=== PATIENT | male | born 1975 | race Two or more races ===

== ENCOUNTER 2020-07-27 23:43 | Inpatient (IN) | payer MEDICAID ==
[~2020-07-27] VITALS: Ht 154.9 cm; Wt 83.9 kg
[2020-07-27 23:57] VITALS: BP 143/90
[2020-07-28] VITALS (7 sets, daily range): BP systolic 127–139; BP diastolic 80–90
--- NOTE | 2020-07-28 00:08 | Emergency Room Report ---
History of Present Illness General Chief Complaint: Dyspnea/Respdistress Source: Patient Present Illness HPI Is a 44-year-old male with no past medical history. He presents with chief complaint of fever cough and shortness of breath. Onset for last 4 days. He does have sick contact in his family. His family however only have mild symptoms. Coughing is nonproductive nature. Worse with exertion. Worse with lying flat. Symptoms worsened today so the so he came in. His room air oxygenation was 80% in triage. He has no other medical problem. No chest pain. No nausea vomiting or diarrhea. No Covid testing done prior to arrival. Allergies: Coded Allergies: No Known Allergies (Unverified , 07/27/20) COVID-19 Screening Contact w/high risk pt: No Experienced COVID-19 symptoms?: Yes COVID-19 Testing performed CARGO AGENT: No Patient History Past Medical History: none, see triage record, old chart reviewed Past Surgical History: none Pertinent Family History: none Social History: Denies: smoking Immunizations: other Reviewed Nursing Documentation: PMH: Agreed; PSxH: Agreed Nursing Documentation-PMH Past Medical History: No Stated History Review of Systems Constitutional: Reports: chills, fever Eye: Denies: eye pain, blurred vision ENT: Denies: ear pain, nose congestion, throat swelling Respiratory: Reports: cough, shortness of breath, ZUNIGA Cardiovascular: Denies: chest pain, palpitations Gastrointestinal: Denies: abdominal pain, diarrhea, nausea, vomiting Musculoskeletal: Denies: back pain, joint pain Skin: Denies: rash Neurological: Denies: headache, numbness Endocrine: Denies: increased thirst, increased urine Hematologic/Lymphatic: Denies: easy bruising All Other Systems: negative except mentioned in HPI Physical Exam Vital Signs Date Time Temp Pulse Resp B/P (MAP) Pulse Ox O2 Delivery O2 Flow Rate FiO2 07/27/20 23:47 100.2 120 22 143/90 (107) 80 Room Air Vitals with hypoxia, fever and tachycardia Sp02 EP Interpretation: reviewed, normal General Appearance: well appearing, alert, mild distress - Ill appearing Head: normocephalic, atraumatic Eyes: bilateral eye PERRL, bilateral eye EOMI ENT: hearing grossly normal, normal pharynx Neck: full range of motion, supple, no meningismus Respiratory: chest non-tender, respiratory distress, decreased breath sounds, rhonchi Cardiovascular #1: regular rate, rhythm, no murmur, tachycardia Gastrointestinal: normal bowel sounds, non tender, no mass, no organomegaly, no bruit, non-distended Musculoskeletal: back normal, normal range of motion, gait/station normal Psychiatric: mood/affect normal Procedures Critical Care Time Critical Care Time Critical care is mandated in this patient who presented with acute respiratory failure from Covid pneumonia. Patient require my urgent intervention to attenuate the risks of respiratory collapse which may lead to cardiovascular collapse and . Critical care time is 35 minutes excluding any reportable procedure. Critical care time included evaluation, multiple reevaluation, looking at old charts, interpreting laboratory and diagnostic data, discussing case with patient and family and consultants, and charting. Medical Decision Making Diagnostic Impression: Primary Impression: Pneumonia due to COVID-19 virus Additional Impression: Acute respiratory failure with hypoxia ER Course Patient presents with hypoxemia secondary to Covid pneumonia. Oxygenation is much better on oxygen. Antibiotics given. Steroid given here. Will admit for further work-up. I discussed the case with Dr. Wood. EKG Diagnostic Results Troponin ordered: Yes Rate: tachycardiac Rhythm: NSR ST Segments: no acute changes Rhythm Strip Diag. Results EP Interpretation: yes Rate: 98 Rhythm: NSR, no PVC's, no ectopy Chest X-Ray Diagnostic Results Chest X-Ray Diagnostic Results : Chest X-Ray Ordered: Yes # of Views/Limited/Complete: 1 View Indication: Shortness of Breath EP Interpretation: Yes Interpretation: no effusion, no pneumothorax, other - b/l infiltrates Impression: Other - b/l infiltrate Electronically Signed by: Orlando Issa MD Last Vital Signs Date Time Temp Pulse Resp B/P (MAP) Pulse Ox O2 Delivery O2 Flow Rate FiO2 07/27/20 23:47 100.2 120 22 143/90 (107) 80 Room Air Status: improved Disposition: ADMITTED INPATIENT Condition: Serious Referrals: NOT CHOSEN IPA/,REFERRING (PCP) Orlando Issa MD Jul 28, 2020 00:07
[2020-07-28] MEDS ORDERED: Enoxaparin 100mg Inj SUBQ ONE (00:15)
[2020-07-28] MEDS ORDERED: dexAMETHasone 10mg/ml Inj IV ONE (00:15)
[2020-07-28] MEDS ORDERED: Azithromycin 500 MG in NS 275 ML IVPB ONE (00:15)
[2020-07-28] MEDS ORDERED: Acetaminophen 500mg (ES) tab ORAL ONE (00:15)
[2020-07-28] MEDS ORDERED: Albuterol 90mcg Inhaler 8gm INH ONE (00:15)
[2020-07-28] MEDS ORDERED: cefTRIAXone 1 GM in NS 55 ML IV ONE (00:15)
[2020-07-28 00:29] LABS: BASOPHILS % (AUTO) 0.4 % (0.0-2.0); EOSINOPHILS % (AUTO) 0.5 % (0.0-3.0); HEMATOCRIT 44.1 % (42.0-52.0); HEMOGLOBIN 16.5 G/DL (14.2-18.0); LYMPHOCYTES % (AUTO) 22.7 % (20.0-45.0); MEAN CORPUSCULAR VOLUME 82 FL (80-99); MONOCYTES % (AUTO) 6.7 % (1.0-10.0); NEUTROPHILS % (AUTO) 69.6 % (45.0-75.0); PLATELET COUNT 254 K/UL (150-450); RED BLOOD COUNT 5.35 M/UL (4.70-6.10); RED CELL DISTRIBUTION WIDTH 12.9 % (11.6-14.8); WHITE BLOOD COUNT 11.3 K/UL (4.8-10.8)
[2020-07-28] MEDS ORDERED: Albuterol ud Inhalation HHN PRN (00:45)
--- NOTE | 2020-07-28 00:47 | Diagnostic Imaging Report ---
EXAM: XR Chest, 1 View CLINICAL HISTORY: SOB TECHNIQUE: Frontal view of the chest. COMPARISON: No relevant prior studies available. FINDINGS: Lungs: Low lung volumes with multifocal opacities throughout both lungs. Pleural space: Unremarkable. No pneumothorax. Heart: Unremarkable. No cardiomegaly. Mediastinum: Unremarkable. Bones/joints: Unremarkable. IMPRESSION: Hypoventilatory exam with multifocal opacities throughout both lungs which may represent an acute infectious/inflammatory process such as multifocal pneumonia. Diffuse alveolar pulmonary edema could also have this appearance.
[2020-07-28 01:05] LABS: ALANINE AMINOTRANSFERASE 83 U/L (12-78); ALBUMIN 3.1 G/DL (3.4-5.0); ALBUMIN/GLOBULIN RATIO 0.6 (1.0-2.7); ALKALINE PHOSPHATASE 166 U/L (46-116); ANION GAP 8 mmol/L (5-15); ASPARTATE AMINO TRANSFERASE 63 U/L (15-37); BILIRUBIN,TOTAL 0.5 MG/DL (0.2-1.0); BLOOD UREA NITROGEN 10 mg/dL (7-18); CALCIUM 8.7 MG/DL (8.5-10.1); CARBON DIOXIDE 28 MMOL/L (21-32); CHLORIDE 100 MMOL/L (98-107); CKMB < 0.5 NG/ML (0.0-3.6); CREATINE KINASE 102 U/L (26-308); CREATININE 0.9 MG/DL (0.55-1.30); FERRITIN 1966 NG/ML (8-388); LACTATE DEHYDROGENASE 430 U/L (81-234); POTASSIUM 3.9 MMOL/L (3.5-5.1); SODIUM 136 MMOL/L (136-145)
[2020-07-28 01:06] LABS: APPEARANCE,URINE CLEAR; BILIRUBIN, URINE NEGATIVE (NEGATIVE); COLOR,URINE PALE YELLOW; GLUCOSE, URINE (UA) 4+ (NEGATIVE); KETONES,URINE NEGATIVE (NEGATIVE); LEUKOCYTE ESTERASE ,URINE NEGATIVE (NEGATIVE); NITRITE,URINE NEGATIVE (NEGATIVE); PH,URINE 7 (4.5-8.0); PROTEIN,URINE 2+ (NEGATIVE); UROBILINOGEN,URINE NORMAL MG/DL (0.0-1.0)
[2020-07-28] MEDS ORDERED: Albuterol 90mcg Inhaler 8gm INH PRN (07:30)
[2020-07-28] MEDS ORDERED: Acetaminophen 650mg/20.3ml ORAL PRN (07:30)
[2020-07-28] MEDS ORDERED: Enoxaparin 40mg Inj SUBQ SCH (09:00)
--- NOTE | 2020-07-28 13:15 | History and Physical Report ---
DATE OF ADMISSION: 07/28/2020 CHIEF COMPLAINT: COVID-19 pneumonia. HISTORY OF PRESENT ILLNESS: The patient is a 44-year-old male, no past medical history, who presents with complaints of four days of cough, congestion, fevers, chills, and shortness of breath. On evaluation in the emergency room, he had a low-grade fever, was hypoxic. He was initially placed on a non-rebreather but later weaned down to nasal cannula. He had evidence of pneumonia on x-ray and his COVID test came back positive. He is now admitted for further evaluation and care. PAST MEDICAL HISTORY: None. PAST SURGICAL HISTORY: None. CURRENT MEDICATIONS: None. FAMILY HISTORY: None. SOCIAL HISTORY: Negative for tobacco, ethanol, or drugs. REVIEW OF SYSTEMS: Negative except for fevers, cough, and congestion. PHYSICAL EXAMINATION: VITAL SIGNS: Temperature 99.8, pulse 91, respirations 22, blood pressure 135/82. GENERAL: The patient is saturating 96% on 2 liters. The patient is a well-developed male, in no apparent distress. HEART: Regular. LUNGS: Clear. ABDOMEN: Soft. EXTREMITIES: Without clubbing, cyanosis, or edema. LABORATORY DATA: Labs were reviewed. ASSESSMENT: This is a 44-year-old male admitted with complaints of COVID-19 pneumonia, hypoxemia. PLAN: IV Decadron. Consider remdesivir. ID consultation. Supplemental oxygen. DVT prophylaxis. Akin Wood M.D. DR: FEI JOB#: [id number] CC:
[2020-07-29] VITALS (7 sets, daily range): BP systolic 116–130; BP diastolic 75–83
--- NOTE | 2020-07-29 09:27 | General Progress Note ---
Subjective ROS Limited/Unobtainable: No Constitutional: Reports: no symptoms HEENT: Reports: no symptoms Cardiovascular: Reports: no symptoms Respiratory: Reports: cough, shortness of breath Gastrointestinal/Abdominal: Reports: no symptoms Genitourinary: Reports: no symptoms Neurologic/Psychiatric: Reports: no symptoms Endocrine: Reports: no symptoms Hematologic/Lymphatic: Reports: no symptoms Allergies: Coded Allergies: No Known Allergies (Unverified , 07/27/20) All Systems: reviewed and negative except above Subjective no events. worsening sob. now on venti mask. Objective Last 24 Hour Vital Signs Date Time Temp Pulse Resp B/P (MAP) Pulse Ox O2 Delivery O2 Flow Rate FiO2 07/29/20 04:00 96.9 88 20 120/77 (91) 91 07/29/20 00:00 97.9 98 20 130/83 (99) 94 07/28/20 20:41 Venturi Mask 14.0 07/28/20 20:00 97.6 96 20 128/80 (96) 94 07/28/20 16:00 97.7 105 21 128/86 (100) 95 07/28/20 12:00 98.2 114 21 137/90 (106) 91 07/28/20 12:00 94 Venturi Mask 14.0 55 07/28/20 10:29 Nasal Cannula 2.0 07/28/20 10:00 98.2 105 18 127/83 (98) 94 Intake and Output 07/28/20 07/29/20 19:00 07:00 Intake Total 500 ml 500 ml Balance 500 ml 500 ml Intake Oral 500 ml Other 500 ml # Voids 2 Laboratory Tests 07/29/20 08:46: Arterial Blood pH 7.410, Arterial Blood Partial Pressure CO2 43.9, Arterial Blood Partial Pressure O2 96.4, Arterial Blood HCO3 27.2H, Arterial Blood Oxygen Saturation 97.1, Arterial Blood Base Excess 2.1H, Jesse Test Positive Height (Feet): 5 Height (Inches): 1.00 Weight (Pounds): 185 Objective deferred due to covid + status Assessment/Plan Problem List: (1) Acute respiratory failure with hypoxia ICD Codes: J96.01 - Acute respiratory failure with hypoxia; J12.89 - Other viral pneumonia SNOMED: 79118672, 986013180 (2) Pneumonia due to COVID-19 virus ICD Codes: U07.1 - COVID-19; J12.89 - Other viral pneumonia SNOMED: 991075129279714533 Status: deteriorating Assessment/Plan: steroids titrate o2 dvt and stress ulcer prophylaxis guarded Akin Wood MD Jul 29, 2020 09:27
[2020-07-29] MEDS: Vitamin D 1000 units Tab ORAL SCH (10:52)
[2020-07-29] MEDS: Zinc Sulfate 220mg ORAL SCH (10:52)
[2020-07-29] MEDS: Ascorbic Acid 500mg tab ORAL SCH ×2 (10:52→17:37)
[2020-07-29] MEDS ORDERED: Loading Dose:Remdesivir 200mg/NS 210ml IV SCH ×2 (11:00)
--- NOTE | 2020-07-29 19:29 | Consultation ---
DATE OF CONSULTATION: 07/29/2020 INFECTIOUS DISEASES CONSULTATION CONSULTING PHYSICIAN: Terrance Helm M.D. PRIMARY ATTENDING PHYSICIAN: Akin Wood M.D. REASON FOR CONSULT: COVID-19 disease. HISTORY OF PRESENT ILLNESS: The patient is a 44-year-old male, admitted yesterday from home complaining of fever, cough, shortness of breath. The patient's symptoms started 5 days ago, had a fever of 100.2 in the ER, had pulse of 120, O2 saturation was low 80% on room air. PAST MEDICAL HISTORY: Insignificant. ALLERGIES: No known drug allergies. MEDICATIONS: Getting Remdesivir, vitamin D, zinc, vitamin C, Protonix, dexamethasone, albuterol, and Tylenol. SOCIAL HISTORY: Denies alcohol, drug abuse, or smoking. He is , has 2 children. At first, the children became sick. REVIEW OF SYSTEMS: Fever since yesterday, shortness of breath, occasional nonproductive cough. No change in his smell. No diarrhea. No problem passing urine. PHYSICAL EXAMINATION: VITAL SIGNS: Temperature 97.9, pulse 89, blood pressure 122/83. GENERAL APPEARANCE: He is overweight, obese. HEAD AND NECK: Getting oxygen by high-flow rebreathing mask. HEART: Normal rate. LUNGS: Clear. Oxygen fluid is 15 liters/minute. ABDOMEN: Soft. EXTREMITIES: No edema. NEUROLOGIC: Awake, alert, oriented x3. LABORATORY AND DIAGNOSTIC DATA: Sodium 136, potassium 3.9, chloride 100, BUN 10, creatinine 0.9, glucose was 209. AST 62, ALT 83, alkaline phosphatase is 166. LDH 430. Albumin is 3.1. Chest x-ray showed no multifocal pneumonia. COVID test was positive. Blood cultures are negative. IMPRESSION: COVID-19 disease. The patient has hypoxemia, has hyperglycemia, may have underlying diabetes mellitus, elevated transaminase, obesity. RECOMMENDATION: Continue dexamethasone and Remdesivir. Check hemoglobin A1c. At the end of my exam, I thank, Dr. Wood, for involving me in the care of this patient. Terrance Helm M.D. DR: DILAN JOB#: [id number] CC:
[2020-07-30 04:00] VITALS: BP 113/74
[2020-07-30 07:57] LABS: BASOPHILS % (AUTO) 0.4 % (0.0-2.0); EOSINOPHILS % (AUTO) 0.3 % (0.0-3.0); HEMATOCRIT 45.2 % (42.0-52.0); HEMOGLOBIN 15.2 G/DL (14.2-18.0); LYMPHOCYTES % (AUTO) 15.9 % (20.0-45.0); MEAN CORPUSCULAR VOLUME 87 FL (80-99); NEUTROPHILS % (AUTO) 77.5 % (45.0-75.0); PLATELET COUNT 317 K/UL (150-450); RED BLOOD COUNT 5.18 M/UL (4.70-6.10); RED CELL DISTRIBUTION WIDTH 12.1 % (11.6-14.8); WHITE BLOOD COUNT 14.3 K/UL (4.8-10.8)
[2020-07-30 07:58] LABS: ALANINE AMINOTRANSFERASE 66 U/L (12-78); ALKALINE PHOSPHATASE 134 U/L (46-116); ANION GAP 8 mmol/L (5-15); ASPARTATE AMINO TRANSFERASE 46 U/L (15-37); BILIRUBIN,TOTAL 0.4 MG/DL (0.2-1.0); BLOOD UREA NITROGEN 21 mg/dL (7-18); CARBON DIOXIDE 29 MMOL/L (21-32); CHLORIDE 102 MMOL/L (98-107); CREATININE 0.8 MG/DL (0.55-1.30); POTASSIUM 4.1 MMOL/L (3.5-5.1); SODIUM 139 MMOL/L (136-145)
[2020-07-30 08:00] VITALS: BP 104/72
[2020-07-30 08:07] LABS: ALBUMIN 2.9 G/DL (3.4-5.0)
[2020-07-30 08:08] LABS: ALBUMIN/GLOBULIN RATIO 0.6 (1.0-2.7)
--- NOTE | 2020-07-30 08:19 | General Progress Note ---
Subjective ROS Limited/Unobtainable: No Constitutional: Reports: malaise, weakness HEENT: Reports: no symptoms Cardiovascular: Reports: no symptoms Respiratory: Reports: cough, shortness of breath Gastrointestinal/Abdominal: Reports: no symptoms Genitourinary: Reports: no symptoms Neurologic/Psychiatric: Reports: no symptoms Endocrine: Reports: no symptoms Hematologic/Lymphatic: Reports: no symptoms Allergies: Coded Allergies: No Known Allergies (Unverified , 07/27/20) All Systems: reviewed and negative except above Subjective no events. stable on venti mask Objective Last 24 Hour Vital Signs Date Time Temp Pulse Resp B/P (MAP) Pulse Ox O2 Delivery O2 Flow Rate FiO2 07/30/20 04:00 97.9 87 20 113/74 (87) 94 07/29/20 23:56 97.8 88 20 120/77 (91) 94 07/29/20 21:56 96 Venturi Mask 14.0 55 07/29/20 21:00 Non-Rebreather 15.0 07/29/20 20:00 97.0 85 20 116/75 (89) 91 07/29/20 16:00 97.7 89 20 125/79 (94) 99 07/29/20 11:29 97.7 89 20 122/83 (96) 98 07/29/20 09:00 Non-Rebreather 15.0 Intake and Output 07/29/20 07/30/20 19:00 07:00 Intake Total 1050 ml 400 ml Output Total 1000 ml 800 ml Balance 50 ml -400 ml Intake Oral 800 ml 400 ml IV Total 250 ml Output Urine Total 1000 ml 800 ml # Voids 4 3 Laboratory Tests 07/29/20 08:46: Arterial Blood pH 7.410, Arterial Blood Partial Pressure CO2 43.9, Arterial Blood Partial Pressure O2 96.4, Arterial Blood HCO3 27.2H, Arterial Blood Oxygen Saturation 97.1, Arterial Blood Base Excess 2.1H, Jesse Test Positive 07/30/20 05:00: D-Dimer 0.70H, Sodium Level 139, Potassium Level 4.1, Chloride Level 102, Carbon Dioxide Level 29, Anion Gap 8, Blood Urea Nitrogen 21H, Creatinine 0.8, Estimat Glomerular Filtration Rate > 60, Glucose Level 147H, Calcium Level 9.0, Total Bilirubin 0.4, Direct Bilirubin [Pending], Aspartate Amino Transf (AST/SGOT) 46H , Alanine Aminotransferase (ALT/SGPT) 66, Alkaline Phosphatase 134H, Total Protein 7.9, Albumin 2.9L, Globulin 5.0, Albumin/Globulin Ratio 0.6L 07/30/20 06:00: White Blood Count 14.3H, Red Blood Count 5.18, Hemoglobin 15.2, Hematocrit 45.2, Mean Corpuscular Volume 87, Mean Corpuscular Hemoglobin 29.3, Mean Corpuscular Hemoglobin Concent 33.6, Red Cell Distribution Width 12.1, Platelet Count 317, Mean Platelet Volume 9.0, Neutrophils (%) (Auto) 77.5H, Lymphocytes (%) (Auto) 15.9L, Monocytes (%) (Auto) 6.0, Eosinophils (%) (Auto) 0.3, Basophils (%) (Auto) 0.4 Height (Feet): 5 Height (Inches): 1.00 Weight (Pounds): 185 General Appearance: WD/WN, no apparent distress Cardiovascular: regular rhythm Respiratory/Chest: normal breath sounds, no accessory muscle use Objective deferred due to covid + status Assessment/Plan Problem List: (1) Acute respiratory failure with hypoxia ICD Codes: J96.01 - Acute respiratory failure with hypoxia; J12.89 - Other viral pneumonia SNOMED: 42134409, 374480086 (2) Pneumonia due to COVID-19 virus ICD Codes: U07.1 - COVID-19; J12.89 - Other viral pneumonia SNOMED: 695526945886363459 Status: stable, deteriorating Assessment/Plan: steroids remdesivir titrate o2 dvt and stress ulcer prophylaxis guarded Akin Wood MD Jul 30, 2020 08:19
[2020-07-30] MEDS: Vitamin D 1000 units Tab ORAL SCH (09:09)
[2020-07-30] MEDS: Ascorbic Acid 500mg tab ORAL SCH ×2 (09:09→17:23)
[2020-07-30] MEDS: Zinc Sulfate 220mg ORAL SCH (09:09)
[2020-07-30] MEDS: Maintenance Dose:Remdesivir 100mg/NS 230ml x 4 Doses IV SCH ×2 (11:18)
[2020-07-30 12:00] VITALS: BP 116/76
--- NOTE | 2020-07-30 12:12 | Infectious Diseases Prog Note ---
Assessment/Plan Assessment/Plan antibiotics : remdesivir 07.29.20 - A 1. COVID 19 pneumonia on 15 liters O2 with saturation 98 % 2. diabetes mellitus P 1. continue remdesivir day 2 2. continue dexamethasone day 3 3. continue isolation Subjective ROS Limited/Unobtainable: Yes Constitutional: Denies: fever, chills Respiratory: Reports: shortness of breath - less, dry cough - less Gastrointestinal/Abdominal: Denies: nausea, vomiting, diarrhea Musculoskeletal: Reports: pain Allergies: Coded Allergies: No Known Allergies (Unverified , 07/27/20) Objective Last 24 Hour Vital Signs Date Time Temp Pulse Resp B/P (MAP) Pulse Ox O2 Delivery O2 Flow Rate FiO2 07/30/20 10:30 98 Non-Rebreather 15.0 100 07/30/20 09:00 Non-Rebreather 15.0 07/30/20 08:00 98.2 91 20 104/72 (83) 97 07/30/20 04:00 97.9 87 20 113/74 (87) 94 07/29/20 23:56 97.8 88 20 120/77 (91) 94 07/29/20 21:56 96 Venturi Mask 14.0 55 07/29/20 21:00 Non-Rebreather 15.0 07/29/20 20:00 97.0 85 20 116/75 (89) 91 07/29/20 16:00 97.7 89 20 125/79 (94) 99 Height (Feet): 5 Height (Inches): 1.00 Weight (Pounds): 185 Microbiology Date/Time Source Procedure Growth Status 07/28/20 00:07 Blood Blood Culture - Preliminary NO GROWTH AFTER 48 HOURS Resulted 07/27/20 23:57 Nasopharynx SARS-CoV-2 RdRp Gene Assay - Final Complete 07/27/20 23:57 Blood Blood Culture - Preliminary NO GROWTH AFTER 48 HOURS Resulted Laboratory Tests Test 07/30/20 05:00 07/30/20 06:00 D-Dimer 0.70 mg/L FEU (0.00-0.49) H Sodium Level 139 MMOL/L (136-145) Potassium Level 4.1 MMOL/L (3.5-5.1) Chloride Level 102 MMOL/L (98-107) Carbon Dioxide Level 29 MMOL/L (21-32) Anion Gap 8 mmol/L (5-15) Blood Urea Nitrogen 21 mg/dL (7-18) H Creatinine 0.8 MG/DL (0.55-1.30) Estimat Glomerular Filtration Rate > 60 mL/min (>60) Glucose Level 147 MG/DL (74-106) H Calcium Level 9.0 MG/DL (8.5-10.1) Total Bilirubin 0.4 MG/DL (0.2-1.0) Direct Bilirubin < 0.1 MG/DL (0.0-0.3) Aspartate Amino Transf (AST/SGOT) 46 U/L (15-37) H Alanine Aminotransferase (ALT/SGPT) 66 U/L (12-78) Alkaline Phosphatase 134 U/L (46-116) H Total Protein 7.9 G/DL (6.4-8.2) Albumin 2.9 G/DL (3.4-5.0) L Globulin 5.0 g/dL Albumin/Globulin Ratio 0.6 (1.0-2.7) L White Blood Count 14.3 K/UL (4.8-10.8) H Red Blood Count 5.18 M/UL (4.70-6.10) Hemoglobin 15.2 G/DL (14.2-18.0) Hematocrit 45.2 % (42.0-52.0) Mean Corpuscular Volume 87 FL (80-99) Mean Corpuscular Hemoglobin 29.3 PG (27.0-31.0) Mean Corpuscular Hemoglobin Concent 33.6 G/DL (32.0-36.0) Red Cell Distribution Width 12.1 % (11.6-14.8) Platelet Count 317 K/UL (150-450) Mean Platelet Volume 9.0 FL (6.5-10.1) Neutrophils (%) (Auto) 77.5 % (45.0-75.0) H Lymphocytes (%) (Auto) 15.9 % (20.0-45.0) L Monocytes (%) (Auto) 6.0 % (1.0-10.0) Eosinophils (%) (Auto) 0.3 % (0.0-3.0) Basophils (%) (Auto) 0.4 % (0.0-2.0) Hemoglobin A1c 7.9 % (4.3-6.0) H Current Medications Medications (Trade) Dose Ordered Sig/Nicolás Route PRN Reason Start Time Stop Time Status Last Admin Dose Admin Acetaminophen (Tylenol) 650 mg Q4H PRN ORAL Mild Pain (Pain Scale 1-3) 07/28/20 07:30 08/27/20 07:29 Albuterol Sulfate (Proventil MDI) 2 puff Q4H PRN INH Shortness of Breath 07/28/20 07:30 10/26/20 07:29 Ascorbic Acid (Vitamin C) 500 mg TWICE A DAY ORAL 07/29/20 10:00 08/28/20 09:59 07/30/20 09:09 Dexamethasone (Decadron) 6 mg DAILY ORAL 07/29/20 09:00 08/06/20 09:01 07/30/20 09:09 Pantoprazole (Protonix) 40 mg DAILY ORAL 07/29/20 10:00 08/28/20 09:59 07/30/20 09:09 Remdesivir 100 mg/ Sodium Chloride 250 ml @ 250 mls/hr Q24H IV 07/30/20 11:00 08/02/20 10:59 07/30/20 11:18 Vitamin D (Vitamin D) 1,000 unit DAILY ORAL 07/29/20 10:00 08/28/20 09:59 07/30/20 09:09 Zinc Sulfate (Zinc Sulfate) 220 mg DAILY ORAL 07/29/20 10:00 10/27/20 09:59 07/30/20 09:09 Maria Elena Phelps MD Jul 30, 2020 12:12
[2020-07-30 16:00] VITALS: BP 111/65
[2020-07-30] MEDS ORDERED: NS 275ml ONE (16:06)
[2020-07-30] MEDS ORDERED: Tubing IV Secondary IV ONE (16:06)
[2020-07-30 20:00] VITALS: BP 112/72
[2020-07-31 04:00] VITALS: BP 112/64
[2020-07-31 08:00] VITALS: BP 116/80
[2020-07-31] MEDS: Vitamin D 1000 units Tab ORAL SCH (08:22)
[2020-07-31] MEDS: Ascorbic Acid 500mg tab ORAL SCH ×2 (08:22→18:25)
[2020-07-31] MEDS: Zinc Sulfate 220mg ORAL SCH (08:22)
--- NOTE | 2020-07-31 09:38 | General Progress Note ---
Subjective ROS Limited/Unobtainable: No Constitutional: Reports: malaise, weakness HEENT: Reports: no symptoms Cardiovascular: Reports: no symptoms Respiratory: Reports: no symptoms Gastrointestinal/Abdominal: Reports: no symptoms Genitourinary: Reports: no symptoms Neurologic/Psychiatric: Reports: no symptoms Endocrine: Reports: no symptoms Hematologic/Lymphatic: Reports: no symptoms Allergies: Coded Allergies: No Known Allergies (Unverified , 07/27/20) All Systems: reviewed and negative except above Subjective no events. stable on nrb Objective Last 24 Hour Vital Signs Date Time Temp Pulse Resp B/P (MAP) Pulse Ox O2 Delivery O2 Flow Rate FiO2 07/31/20 08:00 97.9 94 18 116/80 (92) 94 07/31/20 04:00 97.0 78 18 112/64 (80) 94 07/30/20 21:00 Non-Rebreather 15.0 07/30/20 20:33 96 Non-Rebreather 15.0 100 07/30/20 20:00 99.0 77 18 112/72 (85) 98 07/30/20 16:00 97.0 84 20 111/65 (80) 97 07/30/20 12:00 98.0 80 20 116/76 (89) 97 07/30/20 10:30 98 Non-Rebreather 15.0 100 Intake and Output 07/30/20 07/31/20 19:00 07:00 Intake Total 600 ml Balance 600 ml Intake Oral 600 ml # Voids 4 Height (Feet): 5 Height (Inches): 1.00 Weight (Pounds): 185 Objective deferred due to covid + status Assessment/Plan Problem List: (1) Acute respiratory failure with hypoxia ICD Codes: J96.01 - Acute respiratory failure with hypoxia; J12.89 - Other viral pneumonia SNOMED: 15627810, 495200872 (2) Pneumonia due to COVID-19 virus ICD Codes: U07.1 - COVID-19; J12.89 - Other viral pneumonia SNOMED: 068583961694740084 Status: stable, deteriorating Assessment/Plan: steroids remdesivir titrate o2 dvt and stress ulcer prophylaxis guarded Akin Wood MD Jul 31, 2020 09:38
[2020-07-31] MEDS: Maintenance Dose:Remdesivir 100mg/NS 230ml x 4 Doses IV SCH ×2 (11:08)
--- NOTE | 2020-07-31 11:38 | Infectious Diseases Prog Note ---
Assessment/Plan Assessment/Plan A 1. COVID19 pneumonia 2. diabetes mellitus 3. Hypoxemia P 1. continue remdesivir day 3 2. continue dexamethasone day 4 3. continue isolation Subjective ROS Limited/Unobtainable: No Constitutional: Reports: no symptoms Respiratory: Reports: no symptoms Gastrointestinal/Abdominal: Reports: no symptoms Genitourinary: Reports: no symptoms Allergies: Coded Allergies: No Known Allergies (Unverified , 07/27/20) Objective Last 24 Hour Vital Signs Date Time Temp Pulse Resp B/P (MAP) Pulse Ox O2 Delivery O2 Flow Rate FiO2 07/31/20 09:00 Non-Rebreather 15.0 07/31/20 08:00 97.9 94 18 116/80 (92) 94 07/31/20 04:00 97.0 78 18 112/64 (80) 94 07/30/20 21:00 Non-Rebreather 15.0 07/30/20 20:33 96 Non-Rebreather 15.0 100 07/30/20 20:00 99.0 77 18 112/72 (85) 98 07/30/20 16:00 97.0 84 20 111/65 (80) 97 07/30/20 12:00 98.0 80 20 116/76 (89) 97 Height (Feet): 5 Height (Inches): 1.00 Weight (Pounds): 185 HEENT: mucous membranes moist Respiratory/Chest: other - oxygen by mask, 15 liter/min Cardiovascular: normal rate Abdomen: soft, non tender Extremities: no edema Neurologic/Psychiatric: alert, oriented x 3, responsive Current Medications Medications (Trade) Dose Ordered Sig/Nicolás Route PRN Reason Start Time Stop Time Status Last Admin Dose Admin Acetaminophen (Tylenol) 650 mg Q4H PRN ORAL Mild Pain (Pain Scale 1-3) 07/28/20 07:30 08/27/20 07:29 Albuterol Sulfate (Proventil MDI) 2 puff Q4H PRN INH Shortness of Breath 07/28/20 07:30 10/26/20 07:29 Ascorbic Acid (Vitamin C) 500 mg TWICE A DAY ORAL 07/29/20 10:00 08/28/20 09:59 07/31/20 08:22 Dexamethasone (Decadron) 6 mg DAILY ORAL 07/29/20 09:00 08/06/20 09:01 07/31/20 08:22 Pantoprazole (Protonix) 40 mg DAILY ORAL 07/29/20 10:00 08/28/20 09:59 07/31/20 08:22 Remdesivir 100 mg/ Sodium Chloride 250 ml @ 250 mls/hr Q24H IV 07/30/20 11:00 08/02/20 10:59 07/31/20 11:08 Vitamin D (Vitamin D) 1,000 unit DAILY ORAL 07/29/20 10:00 08/28/20 09:59 07/31/20 08:22 Zinc Sulfate (Zinc Sulfate) 220 mg DAILY ORAL 07/29/20 10:00 10/27/20 09:59 07/31/20 08:22 Terrance Helm MD Jul 31, 2020 11:38
[2020-07-31 12:00] VITALS: BP 114/84
--- NOTE | 2020-07-31 13:29 | Diagnostic Imaging Report ---
Indication: Shortness of breath, lower extremity edema, lower extremity pain, COVID positive Technique: Grayscale and duplex images of the bilateral lower extremity veins Comparison: Findings: Bilaterally, grayscale and duplex images demonstrate no evidence of intraluminal thrombus. Normal phasic Doppler waveforms, demonstrating normal augmentation response and no evidence of valvular insufficiency. Greater saphenous vein(s) and tibial veins are patent. Normal compressibility. Impression: Negative for evidence of lower extremity deep venous thrombosis bilaterally
[2020-07-31 16:00] VITALS: BP 121/82
[2020-07-31 17:12] LABS: BASOPHILS % (AUTO) 0.3 % (0.0-2.0); HEMATOCRIT 45.6 % (42.0-52.0); LYMPHOCYTES % (AUTO) 13.1 % (20.0-45.0); MEAN CORPUSCULAR VOLUME 86 FL (80-99); MONOCYTES % (AUTO) 3.2 % (1.0-10.0); NEUTROPHILS % (AUTO) 83.4 % (45.0-75.0); PLATELET COUNT 376 K/UL (150-450); RED BLOOD COUNT 5.31 M/UL (4.70-6.10); RED CELL DISTRIBUTION WIDTH 12.5 % (11.6-14.8)
[2020-07-31 17:33] LABS: ALANINE AMINOTRANSFERASE 121 U/L (12-78); ALBUMIN 3.1 G/DL (3.4-5.0); ALBUMIN/GLOBULIN RATIO 0.6 (1.0-2.7); ALKALINE PHOSPHATASE 156 U/L (46-116); ANION GAP 5 mmol/L (5-15); ASPARTATE AMINO TRANSFERASE 95 U/L (15-37); BILIRUBIN,DIRECT 0.1 MG/DL (0.0-0.3); BILIRUBIN,TOTAL 0.5 MG/DL (0.2-1.0); BLOOD UREA NITROGEN 23 mg/dL (7-18); CALCIUM 8.8 MG/DL (8.5-10.1); CARBON DIOXIDE 28 MMOL/L (21-32); CHLORIDE 101 MMOL/L (98-107); POTASSIUM 4.4 MMOL/L (3.5-5.1); SODIUM 134 MMOL/L (136-145)
[2020-07-31 20:00] VITALS: BP 110/71
[2020-08-01] VITALS: BP 99/63
[2020-08-01 04:00] VITALS: BP 100/67
[2020-08-01 06:52] LABS: BASOPHILS % (AUTO) 0.3 % (0.0-2.0); EOSINOPHILS % (AUTO) 0.4 % (0.0-3.0); HEMATOCRIT 44.5 % (42.0-52.0); HEMOGLOBIN 15.6 G/DL (14.2-18.0); LYMPHOCYTES % (AUTO) 17.4 % (20.0-45.0); MEAN CORPUSCULAR VOLUME 86 FL (80-99); MONOCYTES % (AUTO) 6.6 % (1.0-10.0); NEUTROPHILS % (AUTO) 75.3 % (45.0-75.0); PLATELET COUNT 341 K/UL (150-450); RED BLOOD COUNT 5.15 M/UL (4.70-6.10); RED CELL DISTRIBUTION WIDTH 12.3 % (11.6-14.8); WHITE BLOOD COUNT 14.4 K/UL (4.8-10.8)
[2020-08-01 07:05] LABS: ALANINE AMINOTRANSFERASE 110 U/L (12-78); ALBUMIN/GLOBULIN RATIO 0.6 (1.0-2.7); ALKALINE PHOSPHATASE 140 U/L (46-116); ANION GAP 7 mmol/L (5-15); ASPARTATE AMINO TRANSFERASE 62 U/L (15-37); BILIRUBIN,DIRECT 0.1 MG/DL (0.0-0.3); BILIRUBIN,TOTAL 0.5 MG/DL (0.2-1.0); BLOOD UREA NITROGEN 24 mg/dL (7-18); CALCIUM 8.6 MG/DL (8.5-10.1); CARBON DIOXIDE 28 MMOL/L (21-32); CHLORIDE 104 MMOL/L (98-107); CREATININE 0.8 MG/DL (0.55-1.30); POTASSIUM 3.5 MMOL/L (3.5-5.1); SODIUM 139 MMOL/L (136-145)
[2020-08-01 08:00] VITALS: BP 98/60
--- NOTE | 2020-08-01 08:17 | General Progress Note ---
Subjective ROS Limited/Unobtainable: No Constitutional: Reports: malaise, weakness HEENT: Reports: no symptoms Cardiovascular: Reports: no symptoms Respiratory: Reports: cough, shortness of breath Gastrointestinal/Abdominal: Reports: no symptoms Genitourinary: Reports: no symptoms Neurologic/Psychiatric: Reports: no symptoms Endocrine: Reports: no symptoms Hematologic/Lymphatic: Reports: no symptoms Allergies: Coded Allergies: No Known Allergies (Unverified , 07/27/20) All Systems: reviewed and negative except above Subjective no events. stable on nrb Objective Last 24 Hour Vital Signs Date Time Temp Pulse Resp B/P (MAP) Pulse Ox O2 Delivery O2 Flow Rate FiO2 08/01/20 04:00 97.2 79 20 100/67 (78) 92 08/01/20 00:00 97.7 81 24 99/63 (75) 95 07/31/20 21:00 Non-Rebreather 15.0 07/31/20 20:05 98 Non-Rebreather 15.0 100 07/31/20 20:00 97.5 87 24 110/71 (84) 96 07/31/20 16:00 97.7 86 20 121/82 (95) 94 07/31/20 12:00 97.8 84 20 114/84 (94) 94 07/31/20 09:00 Non-Rebreather 15.0 Intake and Output 07/31/20 08/01/20 19:00 07:00 Intake Total 850 ml Balance 850 ml Intake Oral 850 ml # Voids 3 1 Laboratory Tests 07/31/20 17:00: White Blood Count 15.0H, Red Blood Count 5.31, Hemoglobin 16.0, Hematocrit 45.6, Mean Corpuscular Volume 86, Mean Corpuscular Hemoglobin 30.2, Mean Corpuscular Hemoglobin Concent 35.2, Red Cell Distribution Width 12.5, Platelet Count 376, Mean Platelet Volume 8.4, Neutrophils (%) (Auto) 83.4H, Lymphocytes (%) (Auto) 13.1L, Monocytes (%) (Auto) 3.2, Eosinophils (%) (Auto) 0.0, Basophils (%) (Auto) 0.3, Sodium Level 134L, Potassium Level 4.4, Chloride Level 101, Carbon Dioxide Level 28, Anion Gap 5, Blood Urea Nitrogen 23H, Creatinine 1.0, Estimat Glomerular Filtration Rate > 60, Glucose Level 369#H, Calcium Level 8.8, Total Bilirubin 0.5, Direct Bilirubin 0.1, Aspartate Amino Transf (AST/SGOT) 95H, Alanine Aminotransferase (ALT/SGPT) 121H, Alkaline Phosphatase 156H, Total Protein 8.0, Albumin 3.1L, Globulin 4.9, Albumin/Globulin Ratio 0.6L 08/01/20 04:40: White Blood Count 14.4H, Red Blood Count 5.15, Hemoglobin 15.6, Hematocrit 44.5, Mean Corpuscular Volume 86, Mean Corpuscular Hemoglobin 30.3, Mean Corpuscular Hemoglobin Concent 35.1, Red Cell Distribution Width 12.3, Platelet Count 341, Mean Platelet Volume 7.8, Neutrophils (%) (Auto) 75.3H, Lymphocytes (%) (Auto) 17.4L, Monocytes (%) (Auto) 6.6, Eosinophils (%) (Auto) 0.4, Basophils (%) (Auto) 0.3, Sodium Level 139, Potassium Level 3.5, Chloride Level 104, Carbon Dioxide Level 28, Anion Gap 7, Blood Urea Nitrogen 24H, Creatinine 0.8, Estimat Glomerular Filtration Rate > 60, Glucose Level 182#H, Calcium Level 8.6, Total Bilirubin 0.5, Direct Bilirubin 0.1, Aspartate Amino Transf (AST/SGOT) 62H, Alanine Aminotransferase (ALT/SGPT) 110H, Alkaline Phosphatase 140H, Total Protein 7.8, Albumin 3.0L, Globulin 4.8, Albumin/Globulin Ratio 0.6L Height (Feet): 5 Height (Inches): 1.00 Weight (Pounds): 185 General Appearance: WD/WN, alert Neck: supple Cardiovascular: regular rhythm Respiratory/Chest: lungs clear Abdomen: normal bowel sounds, non tender, soft Edema: no edema noted Leg (L), no edema noted Leg (R) Assessment/Plan Problem List: (1) Acute respiratory failure with hypoxia ICD Codes: J96.01 - Acute respiratory failure with hypoxia; J - Other viral pneumonia SNOMED: 55596702, 254075097 (2) Pneumonia due to COVID-19 virus ICD Codes: U07.1 - COVID-19; J - Other viral pneumonia SNOMED: 546949180933298501 Status: stable, deteriorating Assessment/Plan: steroids remdesivir titrate o2 dvt and stress ulcer prophylaxis guarded Akin Wood MD Aug 01, 2020 08:17
[2020-08-01] MEDS: Ascorbic Acid 500mg tab ORAL SCH ×2 (08:33→17:58)
[2020-08-01] MEDS: Vitamin D 1000 units Tab ORAL SCH (08:33)
[2020-08-01] MEDS: Zinc Sulfate 220mg ORAL SCH (08:33)
[2020-08-01] MEDS: Maintenance Dose:Remdesivir 100mg/NS 230ml x 4 Doses IV SCH ×2 (11:08)
[2020-08-01 11:30] VITALS: BP 101/64
--- NOTE | 2020-08-01 12:01 | Infectious Diseases Prog Note ---
Assessment/Plan Assessment/Plan antibiotics : remdesivir 07.29.20 - A 1. COVID 19 pneumonia on 15 liters O2 with saturation 94 % 2. diabetes mellitus P 1. continue remdesivir day 4 2. continue dexamethasone day 5 3. continue isolation Subjective Constitutional: Denies: fever, chills Respiratory: Reports: shortness of breath; Denies: dry cough Gastrointestinal/Abdominal: Denies: nausea, vomiting, diarrhea Musculoskeletal: Denies: pain Allergies: Coded Allergies: No Known Allergies (Unverified , 07/27/20) Objective Last 24 Hour Vital Signs Date Time Temp Pulse Resp B/P (MAP) Pulse Ox O2 Delivery O2 Flow Rate FiO2 08/01/20 11:30 97.9 81 20 101/64 (76) 94 08/01/20 08:00 97.7 93 20 98/60 (73) 92 08/01/20 04:00 97.2 79 20 100/67 (78) 92 08/01/20 00:00 97.7 81 24 99/63 (75) 95 07/31/20 21:00 Non-Rebreather 15.0 07/31/20 20:05 98 Non-Rebreather 15.0 100 07/31/20 20:00 97.5 87 24 110/71 (84) 96 07/31/20 16:00 97.7 86 20 121/82 (95) 94 Height (Feet): 5 Height (Inches): 1.00 Weight (Pounds): 185 Laboratory Tests Test 07/31/20 17:00 08/01/20 04:40 White Blood Count 15.0 K/UL (4.8-10.8) H 14.4 K/UL (4.8-10.8) H Red Blood Count 5.31 M/UL (4.70-6.10) 5.15 M/UL (4.70-6.10) Hemoglobin 16.0 G/DL (14.2-18.0) 15.6 G/DL (14.2-18.0) Hematocrit 45.6 % (42.0-52.0) 44.5 % (42.0-52.0) Mean Corpuscular Volume 86 FL (80-99) 86 FL (80-99) Mean Corpuscular Hemoglobin 30.2 PG (27.0-31.0) 30.3 PG (27.0-31.0) Mean Corpuscular Hemoglobin Concent 35.2 G/DL (32.0-36.0) 35.1 G/DL (32.0-36.0) Red Cell Distribution Width 12.5 % (11.6-14.8) 12.3 % (11.6-14.8) Platelet Count 376 K/UL (150-450) 341 K/UL (150-450) Mean Platelet Volume 8.4 FL (6.5-10.1) 7.8 FL (6.5-10.1) Neutrophils (%) (Auto) 83.4 % (45.0-75.0) H 75.3 % (45.0-75.0) H Lymphocytes (%) (Auto) 13.1 % (20.0-45.0) L 17.4 % (20.0-45.0) L Monocytes (%) (Auto) 3.2 % (1.0-10.0) 6.6 % (1.0-10.0) Eosinophils (%) (Auto) 0.0 % (0.0-3.0) 0.4 % (0.0-3.0) Basophils (%) (Auto) 0.3 % (0.0-2.0) 0.3 % (0.0-2.0) Sodium Level 134 MMOL/L (136-145) L 139 MMOL/L (136-145) Potassium Level 4.4 MMOL/L (3.5-5.1) 3.5 MMOL/L (3.5-5.1) Chloride Level 101 MMOL/L (98-107) 104 MMOL/L (98-107) Carbon Dioxide Level 28 MMOL/L (21-32) 28 MMOL/L (21-32) Anion Gap 5 mmol/L (5-15) 7 mmol/L (5-15) Blood Urea Nitrogen 23 mg/dL (7-18) H 24 mg/dL (7-18) H Creatinine 1.0 MG/DL (0.55-1.30) 0.8 MG/DL (0.55-1.30) Estimat Glomerular Filtration Rate > 60 mL/min (>60) > 60 mL/min (>60) Glucose Level 369 MG/DL (74-106) #H 182 MG/DL (74-106) #H Calcium Level 8.8 MG/DL (8.5-10.1) 8.6 MG/DL (8.5-10.1) Total Bilirubin 0.5 MG/DL (0.2-1.0) 0.5 MG/DL (0.2-1.0) Direct Bilirubin 0.1 MG/DL (0.0-0.3) 0.1 MG/DL (0.0-0.3) Aspartate Amino Transf (AST/SGOT) 95 U/L (15-37) H 62 U/L (15-37) H Alanine Aminotransferase (ALT/SGPT) 121 U/L (12-78) H 110 U/L (12-78) H Alkaline Phosphatase 156 U/L (46-116) H 140 U/L (46-116) H Total Protein 8.0 G/DL (6.4-8.2) 7.8 G/DL (6.4-8.2) Albumin 3.1 G/DL (3.4-5.0) L 3.0 G/DL (3.4-5.0) L Globulin 4.9 g/dL 4.8 g/dL Albumin/Globulin Ratio 0.6 (1.0-2.7) L 0.6 (1.0-2.7) L Current Medications Medications (Trade) Dose Ordered Sig/Nicolás Route PRN Reason Start Time Stop Time Status Last Admin Dose Admin Acetaminophen (Tylenol) 650 mg Q4H PRN ORAL Mild Pain (Pain Scale 1-3) 07/28/20 07:30 08/27/20 07:29 Albuterol Sulfate (Proventil MDI) 2 puff Q4H PRN INH Shortness of Breath 07/28/20 07:30 10/26/20 07:29 Ascorbic Acid (Vitamin C) 500 mg TWICE A DAY ORAL 07/29/20 10:00 08/28/20 09:59 08/01/20 08:33 Dexamethasone (Decadron) 6 mg DAILY ORAL 07/29/20 09:00 08/06/20 09:01 08/01/20 08:34 Pantoprazole (Protonix) 40 mg DAILY ORAL 07/29/20 10:00 08/28/20 09:59 08/01/20 08:33 Remdesivir 100 mg/ Sodium Chloride 250 ml @ 250 mls/hr Q24H IV 07/30/20 11:00 08/02/20 10:59 08/01/20 11:08 Vitamin D (Vitamin D) 1,000 unit DAILY ORAL 07/29/20 10:00 08/28/20 09:59 08/01/20 08:33 Zinc Sulfate (Zinc Sulfate) 220 mg DAILY ORAL 07/29/20 10:00 10/27/20 09:59 08/01/20 08:33 Maria Elena Phelps MD Aug 01, 2020 12:01
[2020-08-01 16:00] VITALS: BP 110/71
[2020-08-01 20:00] VITALS: BP 128/74
[2020-08-02] VITALS: BP 127/73
[2020-08-02 04:00] VITALS: BP 115/74
[2020-08-02 07:17] LABS: ALANINE AMINOTRANSFERASE 103 U/L (12-78); ALBUMIN 2.8 G/DL (3.4-5.0); ALBUMIN/GLOBULIN RATIO 0.6 (1.0-2.7); ALKALINE PHOSPHATASE 128 U/L (46-116); ANION GAP 4 mmol/L (5-15); ASPARTATE AMINO TRANSFERASE 51 U/L (15-37); BILIRUBIN,DIRECT 0.1 MG/DL (0.0-0.3); BILIRUBIN,TOTAL 0.5 MG/DL (0.2-1.0); BLOOD UREA NITROGEN 21 mg/dL (7-18); CALCIUM 8.4 MG/DL (8.5-10.1); CARBON DIOXIDE 30 MMOL/L (21-32); CHLORIDE 104 MMOL/L (98-107); CREATININE 0.7 MG/DL (0.55-1.30); SODIUM 138 MMOL/L (136-145)
[2020-08-02 08:00] VITALS: BP 109/52
[2020-08-02 08:14] LABS: BASOPHILS % (AUTO) 0.3 % (0.0-2.0); EOSINOPHILS % (AUTO) 0.1 % (0.0-3.0); HEMATOCRIT 46.6 % (42.0-52.0); HEMOGLOBIN 15.6 G/DL (14.2-18.0); LYMPHOCYTES % (AUTO) 17.5 % (20.0-45.0); MEAN CORPUSCULAR VOLUME 91 FL (80-99); PLATELET COUNT 307 K/UL (150-450); RED CELL DISTRIBUTION WIDTH 12.3 % (11.6-14.8); WHITE BLOOD COUNT 13.2 K/UL (4.8-10.8)
[2020-08-02] MEDS: Ascorbic Acid 500mg tab ORAL SCH ×2 (08:34→18:12)
[2020-08-02] MEDS: Zinc Sulfate 220mg ORAL SCH (08:34)
[2020-08-02] MEDS: Vitamin D 1000 units Tab ORAL SCH (08:34)
[2020-08-02 12:00] VITALS: BP 115/76
[2020-08-02] MEDS: Maintenance Dose:Remdesivir 100mg/NS 230ml x 4 Doses IV SCH ×2 (12:04)
--- NOTE | 2020-08-02 13:17 | General Progress Note ---
Subjective ROS Limited/Unobtainable: No Constitutional: Reports: malaise, weakness HEENT: Reports: no symptoms Cardiovascular: Reports: no symptoms Respiratory: Reports: cough, shortness of breath Gastrointestinal/Abdominal: Reports: no symptoms Genitourinary: Reports: no symptoms Neurologic/Psychiatric: Reports: no symptoms Endocrine: Reports: no symptoms Hematologic/Lymphatic: Reports: no symptoms Allergies: Coded Allergies: No Known Allergies (Unverified , 07/27/20) All Systems: reviewed and negative except above Subjective no events. stable on nrb Objective Last 24 Hour Vital Signs Date Time Temp Pulse Resp B/P (MAP) Pulse Ox O2 Delivery O2 Flow Rate FiO2 08/02/20 09:00 Non-Rebreather 15.0 08/02/20 08:00 97.9 100 20 109/52 (71) 90 08/02/20 04:00 98.5 81 20 115/74 (88) 98 08/02/20 00:00 98.6 86 20 127/73 (91) 98 08/01/20 21:20 Non-Rebreather 15.0 08/01/20 20:00 98.7 78 18 128/74 (92) 98 08/01/20 16:00 98.0 86 20 110/71 (84) 96 Intake and Output 08/01/20 08/02/20 19:00 07:00 Intake Total 900 ml Balance 900 ml Intake Oral 900 ml # Voids 3 # Bowel Movements 1 Laboratory Tests 08/02/20 04:40: White Blood Count 13.2H, Red Blood Count 5.10, Hemoglobin 15.6, Hematocrit 46.6, Mean Corpuscular Volume 91, Mean Corpuscular Hemoglobin 30.6, Mean Corpuscular Hemoglobin Concent 33.6, Red Cell Distribution Width 12.3, Platelet Count 307, Mean Platelet Volume 8.2, Neutrophils (%) (Auto) 76.0H, Lymphocytes (%) (Auto) 17.5L, Monocytes (%) (Auto) 6.0, Eosinophils (%) (Auto) 0.1, Basophils (%) (Auto) 0.3, Sodium Level 138, Potassium Level 4.0, Chloride Level 104, Carbon Dioxide Level 30, Anion Gap 4L, Blood Urea Nitrogen 21H, Creatinine 0.7, Estimat Glomerular Filtration Rate > 60, Glucose Level 171H, Calcium Level 8.4L, Total Bilirubin 0.5, Direct Bilirubin 0.1, Aspartate Amino Transf (AST/SGOT) 51H, Alanine Aminotransferase (ALT/SGPT) 103H, Alkaline Phosphatase 128H, Total Protein 7.2, Albumin 2.8L, Globulin 4.4, Albumin/Globulin Ratio 0.6L Height (Feet): 5 Height (Inches): 1.00 Weight (Pounds): 185 Assessment/Plan Problem List: (1) Acute respiratory failure with hypoxia ICD Codes: J96.01 - Acute respiratory failure with hypoxia; J12.89 - Other viral pneumonia SNOMED: 33695381, [id number] (2) Pneumonia due to COVID-19 virus ICD Codes: U07.1 - COVID-19; J12.89 - Other viral pneumonia SNOMED: [id number] Status: stable, deteriorating Assessment/Plan: steroids remdesivir titrate o2 dvt and stress ulcer prophylaxis guarded Akin Wood MD Aug 02, 2020 13:17
[2020-08-02 16:00] VITALS: BP 108/70
--- NOTE | 2020-08-02 17:28 | Infectious Diseases Prog Note ---
Assessment/Plan Assessment/Plan A 1. COVID19 pneumonia 2. diabetes mellitus 3. Hypoxemia P 1. Finished remdesivir course 2. continue dexamethasone day 6 3. continue isolation Subjective ROS Limited/Unobtainable: Yes Constitutional: Reports: no symptoms Respiratory: Reports: shortness of breath Gastrointestinal/Abdominal: Reports: no symptoms Genitourinary: Reports: no symptoms Allergies: Coded Allergies: No Known Allergies (Unverified , 07/27/20) Objective Last 24 Hour Vital Signs Date Time Temp Pulse Resp B/P (MAP) Pulse Ox O2 Delivery O2 Flow Rate FiO2 08/02/20 16:00 97.5 79 18 108/70 (83) 100 08/02/20 12:00 97.7 82 20 115/76 (89) 91 08/02/20 09:00 Non-Rebreather 15.0 08/02/20 08:00 97.9 100 20 109/52 (71) 90 08/02/20 04:00 98.5 81 20 115/74 (88) 98 08/02/20 00:00 98.6 86 20 127/73 (91) 98 08/01/20 21:20 Non-Rebreather 15.0 08/01/20 20:00 98.7 78 18 128/74 (92) 98 Height (Feet): 5 Height (Inches): 1.00 Weight (Pounds): 185 General Appearance: no acute distress HEENT: mucous membranes moist Respiratory/Chest: other - oxygen by Non rebreathing mask Cardiovascular: normal rate Abdomen: soft, non tender Extremities: no edema Neurologic/Psychiatric: alert, oriented x 3, responsive Laboratory Tests Test 08/02/20 04:40 White Blood Count 13.2 K/UL (4.8-10.8) H Red Blood Count 5.10 M/UL (4.70-6.10) Hemoglobin 15.6 G/DL (14.2-18.0) Hematocrit 46.6 % (42.0-52.0) Mean Corpuscular Volume 91 FL (80-99) Mean Corpuscular Hemoglobin 30.6 PG (27.0-31.0) Mean Corpuscular Hemoglobin Concent 33.6 G/DL (32.0-36.0) Red Cell Distribution Width 12.3 % (11.6-14.8) Platelet Count 307 K/UL (150-450) Mean Platelet Volume 8.2 FL (6.5-10.1) Neutrophils (%) (Auto) 76.0 % (45.0-75.0) H Lymphocytes (%) (Auto) 17.5 % (20.0-45.0) L Monocytes (%) (Auto) 6.0 % (1.0-10.0) Eosinophils (%) (Auto) 0.1 % (0.0-3.0) Basophils (%) (Auto) 0.3 % (0.0-2.0) Sodium Level 138 MMOL/L (136-145) Potassium Level 4.0 MMOL/L (3.5-5.1) Chloride Level 104 MMOL/L (98-107) Carbon Dioxide Level 30 MMOL/L (21-32) Anion Gap 4 mmol/L (5-15) L Blood Urea Nitrogen 21 mg/dL (7-18) H Creatinine 0.7 MG/DL (0.55-1.30) Estimat Glomerular Filtration Rate > 60 mL/min (>60) Glucose Level 171 MG/DL (74-106) H Calcium Level 8.4 MG/DL (8.5-10.1) L Total Bilirubin 0.5 MG/DL (0.2-1.0) Direct Bilirubin 0.1 MG/DL (0.0-0.3) Aspartate Amino Transf (AST/SGOT) 51 U/L (15-37) H Alanine Aminotransferase (ALT/SGPT) 103 U/L (12-78) H Alkaline Phosphatase 128 U/L (46-116) H Total Protein 7.2 G/DL (6.4-8.2) Albumin 2.8 G/DL (3.4-5.0) L Globulin 4.4 g/dL Albumin/Globulin Ratio 0.6 (1.0-2.7) L Current Medications Medications (Trade) Dose Ordered Sig/Nicolás Route PRN Reason Start Time Stop Time Status Last Admin Dose Admin Acetaminophen (Tylenol) 650 mg Q4H PRN ORAL Mild Pain (Pain Scale 1-3) 07/28/20 07:30 08/27/20 07:29 Albuterol Sulfate (Proventil MDI) 2 puff Q4H PRN INH Shortness of Breath 07/28/20 07:30 10/26/20 07:29 Ascorbic Acid (Vitamin C) 500 mg TWICE A DAY ORAL 07/29/20 10:00 08/28/20 09:59 08/02/20 08:34 Dexamethasone (Decadron) 6 mg DAILY ORAL 07/29/20 09:00 08/06/20 09:01 08/02/20 08:33 Pantoprazole (Protonix) 40 mg DAILY ORAL 07/29/20 10:00 08/28/20 09:59 08/02/20 08:34 Vitamin D (Vitamin D) 1,000 unit DAILY ORAL 07/29/20 10:00 08/28/20 09:59 08/02/20 08:34 Zinc Sulfate (Zinc Sulfate) 220 mg DAILY ORAL 07/29/20 10:00 10/27/20 09:59 08/02/20 08:34 Terrance Helm MD Aug 02, 2020 17:28
[2020-08-02 20:00] VITALS: BP 116/72
[2020-08-03] VITALS: BP 103/71
[2020-08-03 04:00] VITALS: BP 110/75
[2020-08-03 08:00] VITALS: BP 100/65
[2020-08-03] MEDS: Vitamin D 1000 units Tab ORAL SCH (08:57)
[2020-08-03] MEDS: Zinc Sulfate 220mg ORAL SCH (08:57)
[2020-08-03] MEDS: Ascorbic Acid 500mg tab ORAL SCH ×2 (08:57→17:16)
[2020-08-03 12:00] VITALS: BP 107/66
[2020-08-03 16:00] VITALS: BP 117/66
--- NOTE | 2020-08-03 17:11 | Infectious Diseases Prog Note ---
Assessment/Plan Assessment/Plan A 1. COVID19 pneumonia 2. diabetes mellitus 3. Hypoxemia P 1. Finished remdesivir course 2. continue dexamethasone day 7 3. continue isolation Subjective ROS Limited/Unobtainable: No Respiratory: Reports: no symptoms Gastrointestinal/Abdominal: Reports: no symptoms Genitourinary: Reports: no symptoms Allergies: Coded Allergies: No Known Allergies (Unverified , 07/27/20) Objective Last 24 Hour Vital Signs Date Time Temp Pulse Resp B/P (MAP) Pulse Ox O2 Delivery O2 Flow Rate FiO2 08/03/20 16:00 97.5 86 20 117/66 (83) 95 08/03/20 12:00 98.7 90 18 107/66 (80) 95 08/03/20 09:00 Non-Rebreather 15.0 08/03/20 08:00 97.5 77 20 100/65 (77) 98 08/03/20 07:00 98 Non-Rebreather 15.0 100 08/03/20 04:00 98.1 75 18 110/75 (87) 96 08/03/20 00:00 98.7 80 18 103/71 (82) 98 08/02/20 21:00 Non-Rebreather 15.0 08/02/20 20:18 96 Non-Rebreather 15.0 100 08/02/20 20:00 97.2 78 18 116/72 (87) 98 Height (Feet): 5 Height (Inches): 1.00 Weight (Pounds): 185 General Appearance: no acute distress HEENT: mucous membranes moist Respiratory/Chest: other - oxygen by mask Cardiovascular: normal rate Abdomen: soft, non tender Extremities: no edema Neurologic/Psychiatric: alert, oriented x 3, responsive Current Medications Medications (Trade) Dose Ordered Sig/Nicolás Route PRN Reason Start Time Stop Time Status Last Admin Dose Admin Acetaminophen (Tylenol) 650 mg Q4H PRN ORAL Mild Pain (Pain Scale 1-3) 07/28/20 07:30 08/27/20 07:29 Albuterol Sulfate (Proventil MDI) 2 puff Q4H PRN INH Shortness of Breath 07/28/20 07:30 10/26/20 07:29 Ascorbic Acid (Vitamin C) 500 mg TWICE A DAY ORAL 07/29/20 10:00 08/28/20 09:59 08/03/20 08:57 Dexamethasone (Decadron) 6 mg DAILY ORAL 07/29/20 09:00 08/06/20 09:01 08/03/20 08:57 Pantoprazole (Protonix) 40 mg DAILY ORAL 07/29/20 10:00 08/28/20 09:59 08/03/20 08:57 Vitamin D (Vitamin D) 1,000 unit DAILY ORAL 07/29/20 10:00 08/28/20 09:59 08/03/20 08:57 Zinc Sulfate (Zinc Sulfate) 220 mg DAILY ORAL 07/29/20 10:00 10/27/20 09:59 08/03/20 08:57 Terarnce Helm MD Aug 03, 2020 17:11
[2020-08-03 23:00] VITALS: BP 132/69
[2020-08-04 04:00] VITALS: BP 127/75
--- NOTE | 2020-08-04 04:00 | Consultation ---
Consult Note Consult Note Internal Med coverage for Dr Wood Patient remains on high flow O2 mask. She has completed 5 days of Remdesivir. She remains on steroids and anticoagulation. Assessment/Plan Continue current therapy Isolation Taper of O2 Discharge when stable off O2. Phan Manzanares MD Aug 04, 2020 04:00
[2020-08-04 08:00] VITALS: BP 121/70
[2020-08-04] MEDS: Ascorbic Acid 500mg tab ORAL SCH ×2 (09:32→17:54)
[2020-08-04] MEDS: Zinc Sulfate 220mg ORAL SCH (09:32)
[2020-08-04] MEDS: Vitamin D 1000 units Tab ORAL SCH (09:32)
[2020-08-04 12:00] VITALS: BP 116/71
--- NOTE | 2020-08-04 12:50 | Infectious Diseases Prog Note ---
Assessment/Plan Assessment/Plan A 1. COVID19 pneumonia 2. diabetes mellitus 3. Hypoxemia P 1. Finished remdesivir course 2. continue dexamethasone day 8 3. continue isolation Subjective ROS Limited/Unobtainable: No Constitutional: Reports: no symptoms Cardiovascular: Reports: no symptoms Gastrointestinal/Abdominal: Reports: no symptoms Allergies: Coded Allergies: No Known Allergies (Unverified , 07/27/20) Objective Last 24 Hour Vital Signs Date Time Temp Pulse Resp B/P (MAP) Pulse Ox O2 Delivery O2 Flow Rate FiO2 08/04/20 12:00 98.1 82 18 116/71 (86) 94 08/04/20 09:00 Non-Rebreather 15.0 08/04/20 08:17 96 Non-Rebreather 15.0 100 08/04/20 08:00 98.0 80 18 121/70 (87) 95 08/04/20 04:00 97.2 78 18 127/75 (92) 96 08/03/20 23:00 97.9 85 20 132/69 (90) 99 08/03/20 21:00 Non-Rebreather 15.0 08/03/20 18:55 95 Non-Rebreather 15.0 100 08/03/20 16:00 97.5 86 20 117/66 (83) 95 Height (Feet): 5 Height (Inches): 1.00 Weight (Pounds): 185 HEENT: mucous membranes moist Respiratory/Chest: other - oxygen by NRB mask Cardiovascular: normal rate Extremities: no edema Neurologic/Psychiatric: alert, oriented x 3, responsive Current Medications Medications (Trade) Dose Ordered Sig/Nicolás Route PRN Reason Start Time Stop Time Status Last Admin Dose Admin Acetaminophen (Tylenol) 650 mg Q4H PRN ORAL Mild Pain (Pain Scale 1-3) 07/28/20 07:30 08/27/20 07:29 Albuterol Sulfate (Proventil MDI) 2 puff Q4H PRN INH Shortness of Breath 07/28/20 07:30 10/26/20 07:29 Ascorbic Acid (Vitamin C) 500 mg TWICE A DAY ORAL 07/29/20 10:00 08/28/20 09:59 08/04/20 09:32 Dexamethasone (Decadron) 6 mg DAILY ORAL 07/29/20 09:00 08/06/20 09:01 08/04/20 09:31 Pantoprazole (Protonix) 40 mg DAILY ORAL 07/29/20 10:00 08/28/20 09:59 08/04/20 09:32 Vitamin D (Vitamin D) 1,000 unit DAILY ORAL 07/29/20 10:00 08/28/20 09:59 08/04/20 09:32 Zinc Sulfate (Zinc Sulfate) 220 mg DAILY ORAL 07/29/20 10:00 10/27/20 09:59 08/04/20 09:32 Terrance Helm MD Aug 04, 2020 12:50
[2020-08-04 16:00] VITALS: BP 118/73
[2020-08-04 20:20] VITALS: BP 107/76
[2020-08-05 00:14] VITALS: BP 106/76
[2020-08-05 04:00] VITALS: BP 100/62
--- NOTE | 2020-08-05 05:02 | Cardiology Progress Note ---
Subjective DATE OF SERVICE: Aug 04, 2020 Objective Last 24 Hour Vital Signs Date Time Temp Pulse Resp B/P (MAP) Pulse Ox O2 Delivery O2 Flow Rate FiO2 08/05/20 04:00 97.2 72 18 100/62 (75) 96 08/05/20 00:14 96.0 72 18 106/76 (86) 89 08/04/20 21:23 Non-Rebreather 15.0 08/04/20 20:20 96.8 90 18 107/76 (86) 89 08/04/20 16:00 97.7 90 18 118/73 (88) 92 08/04/20 12:00 98.1 82 18 116/71 (86) 94 08/04/20 09:00 Non-Rebreather 15.0 08/04/20 08:17 96 Non-Rebreather 15.0 100 08/04/20 08:00 98.0 80 18 121/70 (87) 95 Phan Manzanares MD Aug 05, 2020 05:02
[2020-08-05 08:00] VITALS: BP 102/67
[2020-08-05] MEDS: Zinc Sulfate 220mg ORAL SCH (09:11)
[2020-08-05] MEDS: Ascorbic Acid 500mg tab ORAL SCH ×2 (09:11→17:47)
[2020-08-05] MEDS: Vitamin D 1000 units Tab ORAL SCH (09:11)
[2020-08-05 12:00] VITALS: BP 118/73
[2020-08-05 16:00] VITALS: BP 119/70
[2020-08-05 20:00] VITALS: BP 107/72
[2020-08-06] VITALS: BP 112/81
[2020-08-06 04:00] VITALS: BP 100/63
--- NOTE | 2020-08-06 04:08 | Cardiology Progress Note ---
Subjective DATE OF SERVICE: Aug 05, 2020 remains hypoxic no fever spikes Objective Last 24 Hour Vital Signs Date Time Temp Pulse Resp B/P (MAP) Pulse Ox O2 Delivery O2 Flow Rate FiO2 08/06/20 00:00 98.3 91 20 112/81 (91) 92 08/05/20 21:00 Venturi Mask 10.0 08/05/20 20:00 98.3 80 19 107/72 (84) 95 08/05/20 16:00 98.1 81 19 119/70 (86) 96 08/05/20 12:00 96.9 93 20 118/73 (88) 93 08/05/20 09:00 Non-Rebreather 15.0 08/05/20 08:00 97.8 78 19 102/67 (79) 94 HEENT: normal ENT inspection LUNGS: bilateral rhonchi CARDIAC: normal rate, normal S1 and S2 ABDOMEN: normal bowel sounds, non tender, soft EXTREMITIES: non-tender, No edema Assessment/Plan Assessment/Plan Covid 19 PNA hypoxia NIDDM Taper O2 as able IV steroids Insulin cov'g by SS Anticoag rx Phan Manzanares MD Aug 06, 2020 04:08
[2020-08-06] MEDS: NovoLOG Insulin Flexpen SUBQ SCH ×4 (05:39→20:41)
[2020-08-06] MEDS ORDERED: NovoLOG Insulin Flexpen SUBQ SCH (06:30)
[2020-08-06 07:33] LABS: BASOPHILS % (AUTO) 0.5 % (0.0-2.0); EOSINOPHILS % (AUTO) 0.1 % (0.0-3.0); HEMATOCRIT 43.8 % (42.0-52.0); HEMOGLOBIN 15.9 G/DL (14.2-18.0); MEAN CORPUSCULAR VOLUME 84 FL (80-99); MONOCYTES % (AUTO) 5.1 % (1.0-10.0); NEUTROPHILS % (AUTO) 80.4 % (45.0-75.0); PLATELET COUNT 299 K/UL (150-450); RED BLOOD COUNT 5.22 M/UL (4.70-6.10); RED CELL DISTRIBUTION WIDTH 12.3 % (11.6-14.8); WHITE BLOOD COUNT 16.5 K/UL (4.8-10.8)
[2020-08-06 08:00] VITALS: BP 101/64
[2020-08-06] MEDS: Zinc Sulfate 220mg ORAL SCH (08:43)
[2020-08-06] MEDS: Vitamin D 1000 units Tab ORAL SCH (08:43)
[2020-08-06] MEDS: Ascorbic Acid 500mg tab ORAL SCH ×2 (08:43→16:39)
[2020-08-06] MEDS: Enoxaparin 80mg Inj SUBQ SCH (08:45)
[2020-08-06 08:47] LABS: ALANINE AMINOTRANSFERASE 145 U/L (12-78); ALBUMIN 2.9 G/DL (3.4-5.0); ALBUMIN/GLOBULIN RATIO 0.7 (1.0-2.7); ALKALINE PHOSPHATASE 135 U/L (46-116); ANION GAP 8 mmol/L (5-15); ASPARTATE AMINO TRANSFERASE 59 U/L (15-37); BILIRUBIN,TOTAL 0.7 MG/DL (0.2-1.0); BLOOD UREA NITROGEN 19 mg/dL (7-18); CALCIUM 8.5 MG/DL (8.5-10.1); CARBON DIOXIDE 27 MMOL/L (21-32); CHLORIDE 101 MMOL/L (98-107); CREATININE 0.7 MG/DL (0.55-1.30); POTASSIUM 3.6 MMOL/L (3.5-5.1); SODIUM 136 MMOL/L (136-145)
--- NOTE | 2020-08-06 09:45 | Diagnostic Imaging Report ---
Indication: Shortness of breath Technique: One view of the chest Comparison: 07/28/2020 Findings: Unchanged, allowing for differences in exposure technique, bilateral diffuse infiltrates in a peribronchovascular distribution. There is a large hiatal hernia which is more evident than on the prior exam. Impression: Unchanged bilateral infiltrates.
--- NOTE | 2020-08-06 11:59 | Infectious Diseases Prog Note ---
Assessment/Plan Assessment/Plan antibiotics : none A 1. COVID 19 pneumonia on 10 liters O2 with saturation 92 % s/p remdesivir, dexamethasone 2. diabetes mellitus P 1. start solumedrol 2. continue isolation Subjective Constitutional: Denies: fever, chills Respiratory: Denies: shortness of breath, dry cough Gastrointestinal/Abdominal: Denies: nausea, vomiting, diarrhea Musculoskeletal: Denies: pain Allergies: Coded Allergies: No Known Allergies (Unverified , 07/27/20) Objective Last 24 Hour Vital Signs Date Time Temp Pulse Resp B/P (MAP) Pulse Ox O2 Delivery O2 Flow Rate FiO2 08/06/20 09:00 Venturi Mask 10.0 08/06/20 08:00 97.5 86 18 101/64 (76) 92 08/06/20 04:00 98.1 66 20 100/63 (75) 95 08/06/20 00:00 98.3 91 20 112/81 (91) 92 08/05/20 21:00 Venturi Mask 10.0 08/05/20 20:00 98.3 80 19 107/72 (84) 95 08/05/20 16:00 98.1 81 19 119/70 (86) 96 08/05/20 12:00 96.9 93 20 118/73 (88) 93 Height (Feet): 5 Height (Inches): 1.00 Weight (Pounds): 185 Laboratory Tests Test 08/06/20 04:00 08/06/20 05:15 White Blood Count 16.5 K/UL (4.8-10.8) H Red Blood Count 5.22 M/UL (4.70-6.10) Hemoglobin 15.9 G/DL (14.2-18.0) Hematocrit 43.8 % (42.0-52.0) Mean Corpuscular Volume 84 FL (80-99) Mean Corpuscular Hemoglobin 30.4 PG (27.0-31.0) Mean Corpuscular Hemoglobin Concent 36.3 G/DL (32.0-36.0) H Red Cell Distribution Width 12.3 % (11.6-14.8) Platelet Count 299 K/UL (150-450) Mean Platelet Volume 8.6 FL (6.5-10.1) Neutrophils (%) (Auto) 80.4 % (45.0-75.0) H Lymphocytes (%) (Auto) 14.0 % (20.0-45.0) L Monocytes (%) (Auto) 5.1 % (1.0-10.0) Eosinophils (%) (Auto) 0.1 % (0.0-3.0) Basophils (%) (Auto) 0.5 % (0.0-2.0) Sodium Level 136 MMOL/L (136-145) Potassium Level 3.6 MMOL/L (3.5-5.1) Chloride Level 101 MMOL/L (98-107) Carbon Dioxide Level 27 MMOL/L (21-32) Anion Gap 8 mmol/L (5-15) Blood Urea Nitrogen 19 mg/dL (7-18) H Creatinine 0.7 MG/DL (0.55-1.30) Estimat Glomerular Filtration Rate > 60 mL/min (>60) Glucose Level 208 MG/DL (74-106) H Calcium Level 8.5 MG/DL (8.5-10.1) Magnesium Level 2.2 MG/DL (1.8-2.4) Total Bilirubin 0.7 MG/DL (0.2-1.0) Aspartate Amino Transf (AST/SGOT) 59 U/L (15-37) H Alanine Aminotransferase (ALT/SGPT) 145 U/L (12-78) H Alkaline Phosphatase 135 U/L (46-116) H C-Reactive Protein, Quantitative < 0.4 mg/dL (0.00-0.90) Pro-B-Type Natriuretic Peptide 16 pg/mL (0-125) Total Protein 7.0 G/DL (6.4-8.2) Albumin 2.9 G/DL (3.4-5.0) L Globulin 4.1 g/dL Albumin/Globulin Ratio 0.7 (1.0-2.7) L POC Whole Blood Glucose 228 MG/DL (74-106) H Current Medications Medications (Trade) Dose Ordered Sig/Nicolás Route PRN Reason Start Time Stop Time Status Last Admin Dose Admin Acetaminophen (Tylenol) 650 mg Q4H PRN ORAL Mild Pain (Pain Scale 1-3) 07/28/20 07:30 08/27/20 07:29 Albuterol Sulfate (Proventil MDI) 2 puff Q4H PRN INH Shortness of Breath 07/28/20 07:30 10/26/20 07:29 Ascorbic Acid (Vitamin C) 500 mg TWICE A DAY ORAL 07/29/20 10:00 08/28/20 09:59 08/06/20 08:43 Dextrose (Dextrose 50%) 25 ml Q30M PRN IV Hypoglycemia 08/06/20 04:15 11/04/20 04:14 Dextrose (Dextrose 50%) 50 ml Q30M PRN IV Hypoglycemia 08/06/20 04:15 11/04/20 04:14 Enoxaparin Sodium (Lovenox) 80 mg DAILY SUBQ 08/06/20 09:00 11/04/20 08:59 08/06/20 08:45 Insulin Aspart (NovoLOG) BEFORE MEALS AND HS SUBQ 08/06/20 06:30 11/04/20 06:29 08/06/20 05:39 Pantoprazole (Protonix) 40 mg DAILY ORAL 07/29/20 10:00 08/28/20 09:59 08/06/20 08:43 Vitamin D (Vitamin D) 1,000 unit DAILY ORAL 07/29/20 10:00 08/28/20 09:59 08/06/20 08:43 Zinc Sulfate (Zinc Sulfate) 220 mg DAILY ORAL 07/29/20 10:00 10/27/20 09:59 08/06/20 08:43 Maria Elena Phelps MD Aug 06, 2020 11:59
[2020-08-06 12:00] VITALS: BP 106/82
[2020-08-06] MEDS: Solu-MEDROL 40mg Inj IVP SCH ×2 (12:10→20:42)
[2020-08-06 15:55] VITALS: BP 132/88
[2020-08-06 20:00] VITALS: BP 107/75
[2020-08-07] VITALS (7 sets, daily range): BP systolic 105–121; BP diastolic 68–84
--- NOTE | 2020-08-07 02:55 | Cardiology Progress Note ---
Subjective DATE OF SERVICE: Jul 07, 2020 Increasingly hypoxic; unable to taper O2. no fever spikes CXR (08/06/20) bilateral infiltrates unchanged Objective Last 24 Hour Vital Signs Date Time Temp Pulse Resp B/P (MAP) Pulse Ox O2 Delivery O2 Flow Rate FiO2 08/07/20 00:00 98.2 87 19 112/77 (89) 94 08/06/20 21:00 Venturi Mask 10.0 08/06/20 20:14 95 Non-Rebreather 15.0 100 08/06/20 20:00 98.3 86 19 107/75 (86) 100 08/06/20 15:55 97.9 105 20 132/88 (103) 95 08/06/20 12:00 97.8 74 18 106/82 (90) 93 08/06/20 09:00 Venturi Mask 10.0 08/06/20 08:00 97.5 86 18 101/64 (76) 92 08/06/20 04:00 98.1 66 20 100/63 (75) 95 HEENT: normal ENT inspection LUNGS: bilateral rhonchi CARDIAC: normal rate, normal S1 and S2 ABDOMEN: normal bowel sounds, non tender, soft EXTREMITIES: non-tender, No edema Laboratory Tests Test 08/06/20 04:00 08/06/20 05:15 08/06/20 11:52 08/06/20 16:11 White Blood Count 16.5 K/UL (4.8-10.8) H Red Blood Count 5.22 M/UL (4.70-6.10) Hemoglobin 15.9 G/DL (14.2-18.0) Hematocrit 43.8 % (42.0-52.0) Mean Corpuscular Volume 84 FL (80-99) Mean Corpuscular Hemoglobin 30.4 PG (27.0-31.0) Mean Corpuscular Hemoglobin Concent 36.3 G/DL (32.0-36.0) H Red Cell Distribution Width 12.3 % (11.6-14.8) Platelet Count 299 K/UL (150-450) Mean Platelet Volume 8.6 FL (6.5-10.1) Neutrophils (%) (Auto) 80.4 % (45.0-75.0) H Lymphocytes (%) (Auto) 14.0 % (20.0-45.0) L Monocytes (%) (Auto) 5.1 % (1.0-10.0) Eosinophils (%) (Auto) 0.1 % (0.0-3.0) Basophils (%) (Auto) 0.5 % (0.0-2.0) Sodium Level 136 MMOL/L (136-145) Potassium Level 3.6 MMOL/L (3.5-5.1) Chloride Level 101 MMOL/L (98-107) Carbon Dioxide Level 27 MMOL/L (21-32) Anion Gap 8 mmol/L (5-15) Blood Urea Nitrogen 19 mg/dL (7-18) H Creatinine 0.7 MG/DL (0.55-1.30) Estimat Glomerular Filtration Rate > 60 mL/min (>60) Glucose Level 208 MG/DL (74-106) H Calcium Level 8.5 MG/DL (8.5-10.1) Magnesium Level 2.2 MG/DL (1.8-2.4) Total Bilirubin 0.7 MG/DL (0.2-1.0) Aspartate Amino Transf (AST/SGOT) 59 U/L (15-37) H Alanine Aminotransferase (ALT/SGPT) 145 U/L (12-78) H Alkaline Phosphatase 135 U/L (46-116) H C-Reactive Protein, Quantitative < 0.4 mg/dL (0.00-0.90) Pro-B-Type Natriuretic Peptide 16 pg/mL (0-125) Total Protein 7.0 G/DL (6.4-8.2) Albumin 2.9 G/DL (3.4-5.0) L Globulin 4.1 g/dL Albumin/Globulin Ratio 0.7 (1.0-2.7) L POC Whole Blood Glucose 228 MG/DL (74-106) H 244 MG/DL (74-106) H 385 MG/DL (74-106) H Test 08/06/20 20:29 POC Whole Blood Glucose 386 MG/DL (74-106) H Assessment/Plan Assessment/Plan Covid 19 PNA hypoxia NIDDM uncontrolled on steroids Taper O2 as able IV steroids Insulin cov'g by SS with levemir added Anticoag rx Phan Manzanares MD Aug 07, 2020 02:55
[2020-08-07] MEDS: NovoLOG Insulin Flexpen SUBQ SCH ×4 (05:33→20:24)
[2020-08-07] MEDS: Vitamin D 1000 units Tab ORAL SCH (09:42)
[2020-08-07] MEDS: Solu-MEDROL 40mg Inj IVP SCH ×2 (09:42→20:24)
[2020-08-07] MEDS: Ascorbic Acid 500mg tab ORAL SCH ×2 (09:42→17:03)
[2020-08-07] MEDS: Zinc Sulfate 220mg ORAL SCH (09:42)
[2020-08-07] MEDS: Enoxaparin 80mg Inj SUBQ SCH (09:43)
[2020-08-07] MEDS: Levemir Flexpen SUBQ SCH ×2 (10:17→17:21)
--- NOTE | 2020-08-07 13:13 | Infectious Diseases Prog Note ---
Assessment/Plan Assessment/Plan A 1. COVID19 pneumonia 2. diabetes mellitus 3. Hypoxemia P 1. Finished remdesivir course 2. continue Solumedrol 3. continue isolation Subjective ROS Limited/Unobtainable: Yes Constitutional: Reports: no symptoms Respiratory: Reports: no symptoms Gastrointestinal/Abdominal: Reports: no symptoms Genitourinary: Reports: no symptoms Allergies: Coded Allergies: No Known Allergies (Unverified , 07/27/20) Objective Last 24 Hour Vital Signs Date Time Temp Pulse Resp B/P (MAP) Pulse Ox O2 Delivery O2 Flow Rate FiO2 08/07/20 12:00 98.2 80 18 121/80 (94) 90 08/07/20 09:29 98.1 90 18 120/84 (96) 88 08/07/20 09:00 Venturi Mask 10.0 08/07/20 08:00 98.1 90 18 120/84 (96) 88 08/07/20 04:00 98.2 70 18 105/68 (80) 96 08/07/20 00:00 98.2 87 19 112/77 (89) 94 08/06/20 21:00 Venturi Mask 10.0 08/06/20 20:14 95 Non-Rebreather 15.0 100 08/06/20 20:00 98.3 86 19 107/75 (86) 100 08/06/20 15:55 97.9 105 20 132/88 (103) 95 Height (Feet): 5 Height (Inches): 1.00 Weight (Pounds): 185 HEENT: mucous membranes moist Respiratory/Chest: other - oxygen by venturi mask Cardiovascular: normal rate Abdomen: soft, non tender Extremities: no edema Neurologic/Psychiatric: alert, oriented x 3, responsive Laboratory Tests Test 08/06/20 16:11 08/06/20 20:29 08/07/20 10:22 08/07/20 11:37 POC Whole Blood Glucose 385 MG/DL (74-106) H 386 MG/DL (74-106) H 288 MG/DL (74-106) H 254 MG/DL (74-106) H Current Medications Medications (Trade) Dose Ordered Sig/Nicolás Route PRN Reason Start Time Stop Time Status Last Admin Dose Admin Acetaminophen (Tylenol) 650 mg Q4H PRN ORAL Mild Pain (Pain Scale 1-3) 07/28/20 07:30 08/27/20 07:29 Albuterol Sulfate (Proventil MDI) 2 puff Q4H PRN INH Shortness of Breath 07/28/20 07:30 10/26/20 07:29 Ascorbic Acid (Vitamin C) 500 mg TWICE A DAY ORAL 07/29/20 10:00 08/28/20 09:59 08/07/20 09:42 Dextrose (Dextrose 50%) 25 ml Q30M PRN IV Hypoglycemia 08/06/20 04:15 11/04/20 04:14 Dextrose (Dextrose 50%) 50 ml Q30M PRN IV Hypoglycemia 08/06/20 04:15 11/04/20 04:14 Enoxaparin Sodium (Lovenox) 80 mg DAILY SUBQ 08/06/20 09:00 11/04/20 08:59 08/07/20 09:43 Insulin Aspart (NovoLOG) BEFORE MEALS AND HS SUBQ 08/06/20 06:30 11/04/20 06:29 08/07/20 12:10 Insulin Detemir (Levemir) 10 units BID SUBQ 08/07/20 09:00 11/05/20 08:59 08/07/20 10:17 Methylprednisolone Sodium Succinate (Solu-MEDROL) 40 mg EVERY 12 HOURS IVP 08/06/20 12:00 11/04/20 11:59 08/07/20 09:42 Pantoprazole (Protonix) 40 mg DAILY ORAL 07/29/20 10:00 08/28/20 09:59 08/07/20 09:42 Vitamin D (Vitamin D) 1,000 unit DAILY ORAL 07/29/20 10:00 08/28/20 09:59 08/07/20 09:42 Zinc Sulfate (Zinc Sulfate) 220 mg DAILY ORAL 07/29/20 10:00 10/27/20 09:59 08/07/20 09:42 Terrance Helm MD Aug 07, 2020 13:13
--- NOTE | 2020-08-07 22:33 | Cardiology Progress Note ---
Subjective DATE OF SERVICE: Aug 07, 2020 Increasingly hypoxic; unable to taper O2. no fever spikes Patient wanted to leave AMA today; feels he can be at home, and thinks he can get oxygen. CXR (08/06/20) bilateral infiltrates unchanged Objective Last 24 Hour Vital Signs Date Time Temp Pulse Resp B/P (MAP) Pulse Ox O2 Delivery O2 Flow Rate FiO2 08/07/20 21:00 Venturi Mask 8.0 08/07/20 20:00 97.9 78 19 112/69 (83) 100 08/07/20 16:00 97.9 70 18 121/80 (94) 94 08/07/20 12:00 98.2 80 18 121/80 (94) 90 08/07/20 09:29 98.1 90 18 120/84 (96) 88 08/07/20 09:00 Venturi Mask 10.0 08/07/20 08:00 98.1 90 18 120/84 (96) 88 08/07/20 04:00 98.2 70 18 105/68 (80) 96 08/07/20 00:00 98.2 87 19 112/77 (89) 94 HEENT: normal ENT inspection LUNGS: bilateral rhonchi CARDIAC: normal rate, normal S1 and S2 ABDOMEN: normal bowel sounds, non tender, soft EXTREMITIES: non-tender, No edema Laboratory Tests Test 08/07/20 10:22 08/07/20 11:37 08/07/20 17:11 POC Whole Blood Glucose 288 MG/DL (74-106) H 254 MG/DL (74-106) H 379 MG/DL (74-106) H Assessment/Plan Assessment/Plan Covid 19 PNA hypoxia NIDDM uncontrolled on steroids Taper O2 as able - explained to patient that he is not safe at home with worsening COVID19 infxn IV steroids Diet restricted sweets Insulin cov'g by SS with levemir advanced Anticoag rx Phan Manzanares MD Aug 07, 2020 22:33
[2020-08-08] VITALS: BP 120/73
[2020-08-08 04:00] VITALS: BP 118/70
--- NOTE | 2020-08-08 05:00 | Cardiology Progress Note ---
Subjective DATE OF SERVICE: Aug 08, 2020 Increasingly hypoxic yesterday; now saturating adequately on 8L venturi mask. no fever spikes Patient wanted to leave AMA yesterday; felt he can be at home, and thinks he can get oxygen. CXR (08/06/20) bilateral infiltrates unchanged Objective Last 24 Hour Vital Signs Date Time Temp Pulse Resp B/P (MAP) Pulse Ox O2 Delivery O2 Flow Rate FiO2 08/08/20 00:00 97.8 80 19 120/73 (89) 99 08/07/20 21:00 Venturi Mask 8.0 08/07/20 20:00 97.9 78 19 112/69 (83) 100 08/07/20 16:00 97.9 70 18 121/80 (94) 94 08/07/20 12:00 98.2 80 18 121/80 (94) 90 08/07/20 09:29 98.1 90 18 120/84 (96) 88 08/07/20 09:00 Venturi Mask 10.0 08/07/20 08:00 98.1 90 18 120/84 (96) 88 HEENT: normal ENT inspection LUNGS: bilateral rhonchi CARDIAC: normal rate, normal S1 and S2 ABDOMEN: normal bowel sounds, non tender, soft EXTREMITIES: non-tender, No edema Laboratory Tests Test 08/07/20 10:22 08/07/20 11:37 08/07/20 17:11 POC Whole Blood Glucose 288 MG/DL (74-106) H 254 MG/DL (74-106) H 379 MG/DL (74-106) H Assessment/Plan Assessment/Plan Covid 19 PNA hypoxia NIDDM uncontrolled on steroids Taper O2 as able - explained to patient that he is not safe at home with worsening COVID19 infxn IV steroids Diet restricted sweets Insulin cov'g by SS with levemir advanced Anticoag rx Phan Manzanares MD Aug 08, 2020 05:00
[2020-08-08] MEDS: NovoLOG Insulin Flexpen SUBQ SCH ×4 (05:58→20:36)
[2020-08-08 08:00] VITALS: BP 104/66
[2020-08-08] MEDS: Zinc Sulfate 220mg ORAL SCH (08:19)
[2020-08-08] MEDS: Ascorbic Acid 500mg tab ORAL SCH ×2 (08:19→17:04)
[2020-08-08] MEDS: Vitamin D 1000 units Tab ORAL SCH (08:19)
[2020-08-08] MEDS: Levemir Flexpen SUBQ SCH ×2 (08:30→17:06)
[2020-08-08] MEDS: Enoxaparin 80mg Inj SUBQ SCH (08:31)
[2020-08-08] MEDS: Solu-MEDROL 40mg Inj IVP SCH (09:00)
--- NOTE | 2020-08-08 11:53 | Infectious Diseases Prog Note ---
Assessment/Plan Assessment/Plan antibiotics : none A 1. COVID 19 pneumonia on 8 liters O2 with saturation 93 % s/p remdesivir, dexamethasone 2. diabetes mellitus P 1. continue solumedrol taper dosage 2. continue isolation Subjective Constitutional: Denies: fever, chills Respiratory: Reports: shortness of breath - less; Denies: dry cough Gastrointestinal/Abdominal: Denies: nausea, vomiting, diarrhea Musculoskeletal: Denies: pain Allergies: Coded Allergies: No Known Allergies (Unverified , 07/27/20) Objective Last 24 Hour Vital Signs Date Time Temp Pulse Resp B/P (MAP) Pulse Ox O2 Delivery O2 Flow Rate FiO2 08/08/20 08:00 97.7 83 18 104/66 (79) 93 08/08/20 04:00 97.6 77 19 118/70 (86) 98 08/08/20 00:00 97.8 80 19 120/73 (89) 99 08/07/20 21:00 Venturi Mask 8.0 08/07/20 20:00 97.9 78 19 112/69 (83) 100 08/07/20 16:00 97.9 70 18 121/80 (94) 94 08/07/20 12:00 98.2 80 18 121/80 (94) 90 Height (Feet): 5 Height (Inches): 1.00 Weight (Pounds): 185 Laboratory Tests Test 08/07/20 17:11 08/08/20 11:46 POC Whole Blood Glucose 379 MG/DL (74-106) H 203 MG/DL (74-106) H Current Medications Medications (Trade) Dose Ordered Sig/Nicolás Route PRN Reason Start Time Stop Time Status Last Admin Dose Admin Acetaminophen (Tylenol) 650 mg Q4H PRN ORAL Mild Pain (Pain Scale 1-3) 07/28/20 07:30 08/27/20 07:29 Albuterol Sulfate (Proventil MDI) 2 puff Q4H PRN INH Shortness of Breath 07/28/20 07:30 10/26/20 07:29 Ascorbic Acid (Vitamin C) 500 mg TWICE A DAY ORAL 07/29/20 10:00 08/28/20 09:59 08/08/20 08:19 Dextrose (Dextrose 50%) 25 ml Q30M PRN IV Hypoglycemia 08/06/20 04:15 11/04/20 04:14 Dextrose (Dextrose 50%) 50 ml Q30M PRN IV Hypoglycemia 08/06/20 04:15 11/04/20 04:14 Enoxaparin Sodium (Lovenox) 80 mg DAILY SUBQ 08/06/20 09:00 11/04/20 08:59 08/08/20 08:31 Insulin Aspart (NovoLOG) BEFORE MEALS AND HS SUBQ 08/06/20 06:30 11/04/20 06:29 08/08/20 11:50 Insulin Detemir (Levemir) 15 units BID SUBQ 08/08/20 09:00 11/06/20 08:59 08/08/20 08:30 Methylprednisolone Sodium Succinate (Solu-MEDROL) 40 mg EVERY 12 HOURS IVP 08/06/20 12:00 11/04/20 11:59 08/07/20 09:42 Pantoprazole (Protonix) 40 mg DAILY ORAL 07/29/20 10:00 08/28/20 09:59 08/08/20 08:19 Vitamin D (Vitamin D) 1,000 unit DAILY ORAL 07/29/20 10:00 08/28/20 09:59 08/08/20 08:19 Zinc Sulfate (Zinc Sulfate) 220 mg DAILY ORAL 07/29/20 10:00 10/27/20 09:59 08/08/20 08:19 Maria Elena Phelps MD Aug 08, 2020 11:53
[2020-08-08 12:00] VITALS: BP 115/73
[2020-08-08] MEDS ORDERED: Solu-MEDROL 40mg Inj IVP SCH (12:00)
[2020-08-08 16:00] VITALS: BP 101/65
[2020-08-08] MEDS ORDERED: XARELTO10 MG ORAL (19:42)
[2020-08-08 20:00] VITALS: BP 120/64
--- NOTE | 2020-08-10 14:46 | Discharge Summary ---
Discharge Summary Discharge Summary _ DATE OF ADMISSION: 07/28/2020 DATE OF DISCHARGE: 08/08/2020 DISCHARGED BY: Dr. Wood REASON FOR ADMISSION: 44 years old male with no significant past medical history, presented with complaint of fever, cough and shortness of breath for the last 4 days. He reported sick contacts in the family. Family member however only had mild symptoms. Patient reported nonproductive cough , worse with exertion and lying flat. Symptoms worsened earlier in the morning , so he decided to come for evaluation. Pulse oximetry on room air was 80% in triage. No chest pain. No nausea , vomiting or diarrhea. Rapid Covid 19 test was positive. Vital signs revealed low-grade fever 100.2 , tachycardia 120 , tachypnea 22 and hypoxia with pulse oximetry 80% on room air. EKG revealed sinus tachycardia, no acute ischemic changes. Chest x-ray revealed bilateral infiltrates. Laboratory work-up revealed mild leukocytosis WBC 11.3 , stable hemoglobin , hematocrit and platelet count. Stable electrolytes and renal parameters. Glucose 209. Ferritin 1966, LDH 430, CRP 7.7. AST 63 , ALT 83. Urinalysis revealed +2 protein , +4 glucose , no evidence of UTI. Patient was placed on nonrebreather mask w. In emergency department patient received steroid , empiric antibiotics, liter of IV fluids, albuterol via MDI , Tylenol, Lovenox and admitted for further management. CONSULTANTS: carbon paste mixer operator Dr.Kattan FAUSTIN specialist Dr. Phelps HOSPITAL COURSE: Patient admitted to isolation room. Supplemental oxygen provided and titrated to keep pulse oximetry above 92%. Albuterol via MDI provided as needed. Patient received steroids and remdesivir. Patient received ivermectin. Patient received a full anticoagulation. GI prophylaxis provided Blood cultures were negative. Patient was followed-up with chest x-ray , which revealed unchanged bilateral infiltrates. Patient was followed -up with inflammatory markers. Repeated CRP was less than 0.4. Venous duplex bilateral lower extremity revealed no evidence of acute DVT. Patient initially was on high flow oxygen . Patient noted to have hyperglycemia. Hemoglobin A1c 7.9. Uncontrolled hyperglycemia was likely due to steroids. Diabetic diet and diabetic teaching provided. Blood sugar was managed with long-acting Levemir and sliding scale of insulin as needed . As patient clinically improved , he was able to be weaned down, and prior to discharge pulse oximetry was stable on room air. Patient clinically stabilized and was ready for discharge FINAL DIAGNOSES: COVID-19 pneumonia Acute hypoxemic respiratory failure [id number] diabetes mellitus , out of control DISCHARGE MEDICATIONS: See Medication Reconciliation list. DISCHARGE INSTRUCTIONS: Patient was discharged home. Follow-up with a primary care provider in 1 week. Reinforced compliance with medication and diet I have been assigned to dictate discharge summary for this account. I was not involved in the patient's management. Genoveva Griffin NP Aug 10, 2020 14:46
== END 2020-08-08 21:45 | disposition home or self-care (01) | DRG 137 ==
LOC: EMR 07-28 → UNDOADMIN 07-28 00:05 → 4E 07-28 00:05 → EDBEDREQ 07-28 07:35
DX: U07.1 COVID-19 (principal); J12.89 Other viral pneumonia; J96.01 Acute respiratory failure with hypoxia; E11.65 Type 2 diabetes mellitus with hyperglycemia; E66.9 Obesity, unspecified; Z68.35 Body mass index [BMI] 35.0-35.9, adult; T38.0X5A Adverse effect of glucocorticoids and synthetic analogues, initial encounter
CPT/HCPCS: 36415; 71045; 80053; 81003; 82248; 82550; 82553; 82728; 82803; 82962; 83036; 83605; 83615; 83690; 83735; 83880; 84484; 85025; 85379; 85610; 85730; 86140; 87040; 93005; 93970; 96361; 96365; 96367; 96375; 99291; J1815; J3490; J7030; S5561; U0002